=== PATIENT | female | born 1965 | race Caucasian/White ===

== ENCOUNTER 2023-11-17 13:24 | Inpatient (IN) | payer BC, OTHER ==
[~2023-11-17] VITALS: Ht 165.1 cm; Wt 123.2 kg
[2023-11-17] MEDS: ASPirin 81 mg TAB PO ONE (13:59)
[2023-11-17 14:03] LABS: Basophils # (auto) 0.1 10 ^3/uL (0-0.2); Basophils % (auto) 1.6 % (0.0-2.0); Eosinophils # (auto) 0.1 10 ^3/uL (0-0.8); Eosinophils % (auto) 0.9 % (0.0-7.0); Hematocrit 43.8 % (36.0-46.0); Lymphocytes # (auto) 2.7 10 ^3/uL (0.4-5.4); Lymphocytes % (auto) 31.9 % (10.0-50.0); Mean Corpuscular Hemoglobin 30.4 pg (28.0-32.0); Mean Corpuscular Hgb Conc. 34.2 g/dL (32.0-36.0); Mean Corpuscular Volume 88.8 fL (80.0-100.0); Monocytes # (auto) 0.7 10 ^3/uL (0-1.3); Monocytes % (auto) 7.7 % (0.0-12.0); Neutrophils % (auto) 57.9 % (37.0-80.0); Red Blood Cells 4.93 10^6/uL (4.0-5.20); Red Cell Distribution Width 13.9 % (11.8-14.3); White Blood Cell 8.6 10^3/uL (4.4-10.8)
[2023-11-17 14:19] LABS: Anion Gap 8 (5-15); Carbon Dioxide 26 mmol/L (20-30); Chloride 109 mmol/L (98-107); Potassium 4.1 mmol/L (3.5-5.1); Sodium 143 mmol/L (136-145)
[2023-11-17 14:25] LABS: BUN/Creatinine Ratio 16.9 (10.0-20.0); Blood Urea Nitrogen 12 mg/dL (9-23); Glucose 89 mg/dL (74-106); Magnesium 1.8 mg/dL (1.6-2.6)
[2023-11-17 14:46] LABS: Urine Bacteria NONE SEEN /hpf (None Seen); Urine Blood Negative /uL (Negative); Urine Clarity Clear (Clear); Urine Color Colorless (Yellow); Urine Protein, UAD Negative (Negative); Urine Specific Gravity 1.004 (1.001-1.035); Urine Urobilinogen Normal (Negative); Urine WBC <1 /hpf (0 - 5)
[2023-11-17 15:00] VITALS: PULSE 93; RESP 18; O2SAT 99
[2023-11-17] MEDS ORDERED: MORPHINE SULFATE INJ 2 MG/ml SYRG IV PRN (16:00)
[2023-11-17] MEDS ORDERED: NITROGLYCERIN 0.4 MG SL TAB SL PRN (16:00)
[2023-11-17 16:19] LABS: Triglycerides 276 mg/dL (< 150)
[2023-11-17 16:20] LABS: LDL Cholesterol 135 mg/dL (< 100)
[2023-11-17 16:21] LABS: Cholesterol 206 mg/dL (< 200); HDL Cholesterol 38 mg/dL (40-59)
[2023-11-17] MEDS: GABAPENTIN 300 MG CAP PO SCH (18:05)
[2023-11-17 19:33] VITALS: PULSE 83; RESP 11; O2SAT 94
[2023-11-17] MEDS: traMADol HCL 50 MG TAB PO PRN (20:56)
[2023-11-17] MEDS: METOPROLOL TARTRATE 25 MG TAB PO SCH (22:49)
[2023-11-17] MEDS: CYCLOBENZAPRINE HCL 10 MG TAB PO SCH (22:49)
[2023-11-18 01:45] LABS: Amphetamine Screen, Urine Neg (NEGATIVE); Barbiturate Scree,Urine Neg (NEGATIVE); Benzodiazephine Screen, Urine Neg (NEGATIVE); Cocaine Screen, Urine Neg (NEGATIVE); Opiate Scree,Urine Neg (NEGATIVE)
[2023-11-18 01:46] LABS: Cannabinoid Screen, Urine Pos (NEGATIVE); Phencyclidine Screen, Urine Neg (NEGATIVE)
[2023-11-18 08:15] LABS: Basophils # (auto) 0.1 10 ^3/uL (0-0.2); Basophils % (auto) 0.9 % (0.0-2.0); Eosinophils # (auto) 0.2 10 ^3/uL (0-0.8); Eosinophils % (auto) 2.3 % (0.0-7.0); Hematocrit 41.9 % (36.0-46.0); Hemoglobin 13.9 g/dL (12.2-16.2); Lymphocytes # (auto) 2.1 10 ^3/uL (0.4-5.4); Lymphocytes % (auto) 29.2 % (10.0-50.0); Mean Corpuscular Hemoglobin 29.8 pg (28.0-32.0); Mean Corpuscular Hgb Conc. 33.1 g/dL (32.0-36.0); Mean Corpuscular Volume 90.2 fL (80.0-100.0); Monocytes # (auto) 0.6 10 ^3/uL (0-1.3); Monocytes % (auto) 8.1 % (0.0-12.0); Neutrophils # (auto) 4.3 10 ^3/uL (1.6-8.6); Neutrophils % (auto) 59.5 % (37.0-80.0); Red Blood Cells 4.64 10^6/uL (4.0-5.20); White Blood Cell 7.2 10^3/uL (4.4-10.8)
[2023-11-18 08:16] LABS: Chloride 106 mmol/L (98-107); Potassium 4.2 mmol/L (3.5-5.1); Sodium 143 mmol/L (136-145)
[2023-11-18 08:17] LABS: Anion Gap 4 (5-15); Carbon Dioxide 33 mmol/L (20-30)
[2023-11-18 08:18] LABS: Calcium 9.1 mg/dL (8.5-10.1)
[2023-11-18 08:22] LABS: BUN/Creatinine Ratio 17.9 (10.0-20.0); Blood Urea Nitrogen 14 mg/dL (9-23); Glucose 115 mg/dL (74-106)
[2023-11-18 09:49] VITALS: PULSE 63; RESP 14; O2SAT 94
[2023-11-18] MEDS: ASPirin 81 mg TAB PO SCH (10:00)
[2023-11-18] MEDS: MAGNESIUM SULFATE 1GM/100ML 100 ML IV ONE (10:52)
[2023-11-18 11:01] LABS: Alanine Aminotransferase 31 U/L (7-40); Aspartate Aminotransferase 20 U/L (13-40)
[2023-11-18] MEDS: ONDANSETRON HCL 4 MG/2 ML VIAL IV PRN (14:08)
[2023-11-18 18:40] VITALS: PULSE 76; RESP 18; O2SAT 96
[2023-11-18 20:02] VITALS: BP 115/74; PULSE 85; RESP 17; TEMP 97.5; O2SAT 96
[2023-11-18 20:25] VITALS: BP 117/67; PULSE 79; RESP 18; TEMP 98; O2SAT 92
[2023-11-18] MEDS ORDERED: SUMA100T15 PO (21:22)
[2023-11-18] MEDS ORDERED: SEMA1.7I SC (21:22)
[2023-11-18] MEDS ORDERED: MAGN400T40 PO (21:22)
[2023-11-18] MEDS ORDERED: MELO-335 PO (21:22)
[2023-11-18] MEDS ORDERED: CYCL-611 PO (21:22)
[2023-11-18] MEDS ORDERED: TRAM50TA2 PO (21:22)
[2023-11-18] MEDS ORDERED: OMEG1CAP68 PO (21:22)
[2023-11-18] MEDS ORDERED: FOLITAB22 PO (21:22)
[2023-11-18] MEDS ORDERED: ERGO1CAP23 PO (21:22)
[2023-11-18] MEDS ORDERED: GABA-1250 PO (21:22)
[2023-11-18] MEDS: AMIODARONE HCL 200 MG TAB PO SCH (21:27)
[2023-11-18] MEDS: METOPROLOL TARTRATE 25 MG TAB PO SCH (21:28)
[2023-11-18] MEDS: ATORVASTATIN 20 MG TAB PO SCH (21:37)
[2023-11-18 21:59] VITALS: BP 111/54; PULSE 71; RESP 17; TEMP 97.9; O2SAT 94
[2023-11-18] MEDS ORDERED: ATORVASTATIN 20 MG TAB PO SCH (22:00)
[2023-11-19 04:54] VITALS: BP 106/83; PULSE 71; RESP 18; TEMP 97.9; O2SAT 90
[2023-11-19 08:00] VITALS: PULSE 74
[2023-11-19 08:48] VITALS: BP 99/39; PULSE 81; RESP 16; TEMP 97.8; O2SAT 93
[2023-11-19 13:00] VITALS: BP 129/58; PULSE 66; RESP 16; TEMP 98; O2SAT 93
[2023-11-19] MEDS ORDERED: AMIO200T33 PO (14:34)
[2023-11-19 15:11] VITALS: BP 99/39; PULSE 70; RESP 16; TEMP 36.7
== END 2023-11-19 15:49 | disposition home or self-care (01) | DRG 281 ==
LOC: EDBD 13:24 → ER 13:24 → TELE 15:59 → TELE-EAST 11-18 19:26
PROVIDERS: ADMIT Nurse Practitioner Acute Care; ATTEND Nurse Practitioner Acute Care
DX: I21.4 Non-ST elevation (NSTEMI) myocardial infarction (principal); Z68.42 Body mass index [BMI] 45.0-49.9, adult; K76.0 Fatty (change of) liver, not elsewhere classified; R73.03 Prediabetes; G89.29 Other chronic pain; M54.50 Low back pain, unspecified; F41.9 Anxiety disorder, unspecified; M47.9 Spondylosis, unspecified; I48.0 Paroxysmal atrial fibrillation; E66.01 Morbid (severe) obesity due to excess calories; E78.5 Hyperlipidemia, unspecified; Z82.49 Family history of ischemic heart disease and other diseases of the circulatory system; Z83.3 Family history of diabetes mellitus; Z82.3 Family history of stroke; Z87.891 Personal history of nicotine dependence
CPT/HCPCS: 36415; 71045; 80048; 80061; 80307; 81001; 83036; 83735; 83880; 84443; 84450; 84460; 84484; 85025; 93005; 93306; 99291; G0378; J2405

== ENCOUNTER 2025-07-08 15:09 | Emergency (ER) | payer BC, OTHER ==
[~2025-07-08] VITALS: Ht 165.1 cm; Wt 94.9 kg
[~2025-07-08 15:09] MED LIST: AMIO200T33 PO; CYCL-611 PO; ERGO1CAP23 PO; FOLITAB22 PO; GABA-1250 PO; MAGN400T40 PO; MELO15TA29 PO; OMEG1CAP68 PO; SEMA1.7I SC; SUMA100T15 PO; TRAM50TA2 PO
[2025-07-08 15:15] VITALS: BP 145/69; PULSE 76; RESP 18; TEMP 98; O2SAT 98
--- NOTE | 2025-07-08 17:48 | ED.PDOC ---
History of Present Illness HPI Comments 59-year-old woman presents with around one month of lower back pain associated with lower extremity weakness. Patient had outpatient MRI that was concerning for osteomyelitis, diskitis, and cauda equina syndrome. Chief Complaint: Back Pain Time Seen by MD: 15:49 Allergies: Coded Allergies: No Known Drug Allergy (Verified Allergy, Unknown, 11/17/23) Home Meds Active Scripts Amiodarone Hcl (Amiodarone Hcl) 200 Mg Tab, 1 TAB PO DAILY, #90 TAB 1 Refill Prov:MARLENE RICE MD 11/19/23 Reported Medications [place]-3 Fatty Acids (Fish Oil [place]-3 1000 mg) 1 Cap Cap, 1 CAP PO for SUPPLEMENT, CAP 11/18/23 Semaglutide (Wegovy) 1.7 Mg/0.75 Ml Inj, 1.7 MG SC for WEIGHTLOSS, INJ 11/18/23 Ergocalciferol (VITAMIN D 29813 UNIT) 50,000 [place], [address] UNIT PO for SUPPLEMENT, CAP 11/18/23 Sumatriptan Succinate (Sumatriptan Succinate) 100 Mg Tab, 1 TAB PO UD for MIGRAINES, #9 TAB 3 Refills 11/18/23 Folic Qlpv-Lslpmtgvzs-Avldtyny (Folbic) Tab, 1 TAB PO DAILY for SUPPLEMENT, #90 TAB 3 Refills 11/18/23 Magnesium Oxide (MAGNESIUM OXIDE) 400 Mg Tab, 1 TAB PO BID for SUPPLEMENT, #60 TAB 5 Refills 11/18/23 Tramadol Hcl (Tramadol Hcl) 50 Mg Tab, 50 MG PO for PAIN RELIEVER, TAB 11/18/23 Cyclobenzaprine HCl (Cyclobenzaprine Hydrochlo) 10 Mg Tab, 10 MG PO for MUSCLE RELAXER, TAB 11/18/23 Meloxicam (Meloxicam) 15 Mg Tab, 1 TAB PO DAILY for PAIN RELIEF FOR NECK, #30 TAB 2 Refills 11/18/23 Gabapentin (Gabapentin) 300 Mg Cap, 1 CAP PO TID for NEUROPATHY, #90 CAP 5 Refills 11/18/23 Mode of Arrival: Ambulatory Past Medical History PAST MEDICAL HISTORY: DM, Liver Surgical History: Denies all surgeries 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 Hx Family History Family History: Family hx of DM, Family hx of heart azul, Family hx of HTN Social History Smoker: Non-Smoker Alcohol: Denies ETOH Use Drugs: Denies Drug Use Lives In: Home All Other Systems: Reviewed and Negative Physical Exam General Appearance: Normal HEENT: PERRL/EOMI Neck: Normal Inspection Respiratory: No Respiratory Distress Cardiovascular: No Edema Breast Exam: Deferred Gastrointestinal: No Organomegaly Genitalia: Deferred Pelvic: Deferred Rectal: Deferred Extremities: Other (Generalized weakness and difficulty ambulating) Neurologic: Abnormal Gait Cerebellar Function: NOT DONE Reflexes: NOT DONE Skin: Normal Color Lymphatic: NOT DONE Was a procedure done? Was a procedure done?: No Differential Dx Considerations may include: Cauda equina, diskitis, osteomyelitis X-Ray, Labs, Meds, VS Vital Signs Date Time Temp Pulse Resp B/P (MAP) Pulse Ox O2 Delivery O2 Flow Rate FiO2 07/08/25 15:15 98.0 76 18 145/69 98 98.0 Time of 1ST Reevaluation: 04:40 Reevaluation 1ST: Unchanged Patient Education/Counseling: Diagnosis, Treatment Family Education/Counseling: No Family Present SEPSIS Sepsis Screen Date sepsis recognized/suspect: Jul 08, 2025 Time Sepsis recognized/suspect: 1515 Recent Procedure: No On Antibiotic Therapy: No Respiratory Rate >20: No Heart Rate >90: No Temp<36 C (96.8 F) or >38.3 C: No SBP <90 or MAP <65 mmHG: No New Acute Mental Status Change: No Is the patient on CPAP, BIPAP,: No Vital Signs Date Time Temp Pulse Resp B/P (MAP) Pulse Ox O2 Delivery O2 Flow Rate FiO2 07/08/25 15:15 98.0 76 18 145/69 98 98.0 Departure 1 Departure Time of Disposition: 04:40 (Patient told me she is going to go directly to [facility].) Impression: Primary Impression: Lower back pain Additional Impression: Abnormal MRI Disposition: 07 LEFT AWOL/ELOPED Condition: Serious Critical Care Note Critical Care Time?: No Stability Stability form required: MONICA Lemus MD Jul 08, 2025 17:48
== END 2025-07-08 16:30 | disposition left against medical advice (07) ==
LOC: ER 15:09
DX: M54.50 Low back pain, unspecified (principal); R93.89 Abnormal findings on diagnostic imaging of other specified body structures; E11.9 Type 2 diabetes mellitus without complications; Z79.899 Other long term (current) drug therapy